=== PATIENT | female | born 1965 | race Caucasian/White ===

== ENCOUNTER 2019-07-19 08:51 | Outpatient (CLI) | payer OTHER, SELFPAY ==
--- NOTE | ~2019-07-19 | MM_ITS ---
EXAMINATION: MM screening andrei BI w wai HISTORY: Screening mammogram TECHNIQUE: Craniocaudal and mediolateral oblique 3-D tomosynthesis images were obtained and synthetic 2-D images were generated. CAD analysis was submitted and interpreted. COMPARISON: No prior mammogram is available for comparison at this institution. BREAST PARENCHYMAL COMPOSITION: There are scattered areas of fibroglandular density. FINDINGS: Stable benign-appearing low density mass in the upper outer quadrant of the right breast, T here is no evidence of suspicious mass, calcification, or architectural distortion to suggest maligna ncy in either breast. There has been no suspicious interval change. IMPRESSION: 1. No mammographic evidence of malignancy. 2. Recommend routine screening mammography in one year. BI-RADS Category 2: Benign finding(s). Reviewed, dictated and finalized at location A.
== END 2019-07-19 08:52 | disposition home or self-care (01) ==
LOC: ANHIMG 08:53
PROVIDERS: PCP Internal Medicine; Visit Provider Obstetrics & Gynecology
DX: Z12.31 Encounter for screening mammogram for malignant neoplasm of breast (principal)
CPT/HCPCS: 77063; 77067

== ENCOUNTER 2020-07-24 08:49 | Outpatient (CLI) | payer OTHER, SELFPAY ==
--- NOTE | ~2020-07-24 | MM_ITS ---
EXAMINATION: MM screening andrei BI w wai HISTORY: Screening TECHNIQUE: Craniocaudal and mediolateral oblique 3-D tomosynthesis images were obtained and synthetic 2-D images were generated. CAD analysis was submitted and interpreted. COMPARISON: Comparison to multiple prior studies sequentially, with oldest reviewed study dated 07/03. BREAST PARENCHYMAL COMPOSITION: There are scattered areas of fibroglandular density. FINDINGS: There is no evidence of suspicious mass, calcification, or architectural distortion to sugg est malignancy in either breast. There has been no suspicious interval change. IMPRESSION: 1. No mammographic evidence of malignancy. 2. Recommend routine screening mammography in one year. BI-RADS Category 1: Negative Reviewed, dictated and finalized at location A.
== END 2020-07-24 08:50 | disposition home or self-care (01) ==
LOC: ANHIMG 08:52
PROVIDERS: PCP Internal Medicine; Visit Provider Obstetrics & Gynecology
DX: Z12.31 Encounter for screening mammogram for malignant neoplasm of breast (principal)
CPT/HCPCS: 77063; 77067

== ENCOUNTER 2021-01-03 13:55 | Outpatient (CLI) | payer OTHER, SELFPAY ==
[2021-01-03 14:44] LABS: Alanine Aminotransferase 11 U/L (4-35); Albumin Level 4.6 g/dL (3.5-5.1); Alkaline Phosphatase 59 U/L (38-126); Anion Gap 8 mmol/L (8-16); Aspartate Amino Transferase 25 U/L (14-36); Bilirubin,Total 0.3 mg/dL (0.2-1.3); Blood Urea Nitrogen 15 mg/dL (7-17); Calcium 10.1 mg/dL (8.4-10.2); Carbon Dioxide 29 mmol/L (22-30); Chloride 103 mmol/L (98-107); Estimated Glomerular Filt Rate > 60; Glucose 90 mg/dL (65-110); Potassium 4.2 mmol/L (3.4-5.0); Sodium 140 mmol/L (137-145)
== END 2021-01-03 13:56 | disposition home or self-care (01) ==
LOC: ANHLAB 13:58
PROVIDERS: PCP Internal Medicine; Visit Provider Internal Medicine
DX: L68.0 Hirsutism (principal); I10 Essential (primary) hypertension
CPT/HCPCS: 36415; 80053

== ENCOUNTER 2021-01-08 08:57 | Outpatient (CLI) | payer OTHER, SELFPAY ==
[2021-01-08 10:01] LABS: Thyroid Stimulating Hormone 0.586 uIU/mL (0.465-4.680)
[2021-01-11 11:45] LABS: Testosterone Total 24 ng/dL (2-45)
== END 2021-01-08 08:58 | disposition home or self-care (01) ==
LOC: ANHLAB 09:00
PROVIDERS: PCP Internal Medicine; Visit Provider Internal Medicine
DX: L68.0 Hirsutism (principal)
CPT/HCPCS: 36415; 84403; 84443

== ENCOUNTER 2021-02-01 09:25 | Outpatient (CLI) | payer OTHER, SELFPAY ==
[2021-02-01 10:17] LABS: Anion Gap 7 mmol/L (8-16); Blood Urea Nitrogen 15 mg/dL (7-17); Calcium 10.2 mg/dL (8.4-10.2); Carbon Dioxide 30 mmol/L (22-30); Chloride 99 mmol/L (98-107); Estimated Glomerular Filt Rate > 60; Glucose 94 mg/dL (65-110); Sodium 136 mmol/L (137-145)
== END 2021-02-01 09:26 | disposition home or self-care (01) ==
PROVIDERS: PCP Internal Medicine; Visit Provider Internal Medicine
DX: Z51.81 Encounter for therapeutic drug level monitoring (principal); Z79.899 Other long term (current) drug therapy
CPT/HCPCS: 36415; 80048

== ENCOUNTER 2021-06-07 00:42 | Day surgery (SDC) | payer OTHER, SELFPAY ==
[2021-05-27 13:11] VITALS: BMI 27.2
--- NOTE | 2021-06-06 12:19 | PM.HPGS ---
History of Present Illness History of Present Illness Consent: Risks, benefits, and alternatives have been discussed and questions answered. Patient agrees to proceed with procedure. Chief complaint: family hx of colon ca, neoplasm screening Narrative: Wilda Ceron is a 55 year old female was referred for colon cancer screening. She has a family history of colon cancer in a maternal grandparent. Review of Systems Review of Systems: All systems reviewed & are unremarkable except as noted in HPI and below PMFSH Past Medical History Medical History Anxiety Arthritis Arthritis of foot, right, degenerative Depression Encephalitis GERD (gastroesophageal reflux disease) Hallux valgus with bunions of right foot High cholesterol History of syncope Hypertension Lumbar scoliosis Metatarsus adductus of right foot Vision abnormalities Surgical History Surgical History History of left hip replacement 2015, Vincent Abbasiorlando History of surgery Right femur nail 1979 Family History Family History Other Arthritis Hypertension Social History Social History Smoking packs per day: 1 Smoking cigarettes per day: 20.0 Years smoked: 33 Smoking pack-years: 33.00 Smoking status: Former smoker Tobacco type: cigarettes Alcohol intake: current Alcohol use details: Occasional Substance use: never Substance use type: does not use Living arrangements: with family Spiritual care concerns: No Meds Home Medications and Allergies Home Medications Medication Instructions Recorded Confirmed Type acetaminophen 650 mg 1,300 mg PO Q12H PRN 04/15/19 05/27/21 History tablet,extended release aspirin 81 mg tablet,delayed 81 mg PO DAILY 04/15/19 05/27/21 History release lisinopril 20 mg tablet 20 mg PO DAILY 04/15/19 05/27/21 History multivitamin 1 cap PO DAILY 04/15/19 05/27/21 History sertraline 150 mg PO DAILY 04/15/19 05/27/21 History simvastatin 40 mg tablet 40 mg PO DAILY 04/15/19 05/27/21 History cholecalciferol (vitamin D3) 250 mcg PO DAILY 05/27/21 05/27/21 History [Vitamin D3] spironolactone 25 mg PO DAILY 05/27/21 05/27/21 History Allergies Allergy/AdvReac Type Severity Reaction Status Date / Time No Known Allergies Allergy Unknown Verified 05/27/21 13:11 Exam Const: General: alert Orientation/consciousness: patient oriented x3 Resp: Auscultation: clear to auscultation bilaterally Cardio: Rhythm: regular rhythm GI: GI Palp: Yes Soft to palpation and No Tenderness to palpation present (GI) Neuro: General: patient oriented x3 Assessment and Plan Assessment and plan (1) Colon cancer screening: Code(s): Z12.11 - Encounter for screening for malignant neoplasm of colon Status: Acute Assessment and Plan: Colonoscopy with possible biopsy or polypectomy or cautery or injection of substances.
[2021-06-07 08:14] VITALS: BP 124/78; PULSE 79; RESP 16; TEMP 36.6; O2SAT 100
--- NOTE | 2021-06-07 08:17 | WPDANESEPPF ---
Anes - Initial Pre Proc Eval Procedure: Operation Date: 06/07/21 09:30 Proposed Procedures p Screening Colonoscopy - Marin Soto MD Date/Time: 06/07/21 08:17 Surgeon: Marin Soto MD Pre Op Diagnosis: family hx of colon ca, neoplasm screening Patient Data Age: 55 Gender: F Height: 1.71 m Weight: 80 kg Last Vital Signs Temp 36.6 C 06/07/21 08:14 Pulse 79 06/07/21 08:14 Resp 16 06/07/21 08:14 BP 124/78 06/07/21 08:14 Pulse Ox 100 06/07/21 08:14 Allergies Allergy/AdvReac Type Severity Reaction Status Date / Time No Known Allergies Allergy Unknown Verified 05/27/21 13:11 Home Medications Medication Instructions Recorded Confirmed Type acetaminophen 650 mg 1,300 mg PO Q12H PRN 04/15/19 05/27/21 History tablet,extended release aspirin 81 mg tablet,delayed 81 mg PO DAILY 04/15/19 05/27/21 History release lisinopril 20 mg tablet 20 mg PO DAILY 04/15/19 05/27/21 History multivitamin 1 cap PO DAILY 04/15/19 05/27/21 History sertraline 150 mg PO DAILY 04/15/19 05/27/21 History simvastatin 40 mg tablet 40 mg PO DAILY 04/15/19 05/27/21 History cholecalciferol (vitamin D3) 250 mcg PO DAILY 05/27/21 05/27/21 History [Vitamin D3] spironolactone 25 mg PO DAILY 05/27/21 05/27/21 History Patient hx anesthesia problems: none Family hx anesthesia problems: none Results Review: All pre-operative results and documents have been reviewed as part of the pre-operative evaluation. [facility] Past Medical History Medical History (Updated 06/06/21 @ 12:20 by Marin Soto MD) Anxiety Arthritis Arthritis of foot, right, degenerative Depression Encephalitis GERD (gastroesophageal reflux disease) Hallux valgus with bunions of right foot High cholesterol History of syncope Hypertension Lumbar scoliosis Metatarsus adductus of right foot Vision abnormalities Surgical History Surgical History History of left hip replacement 2015, Vincent Bowden History of surgery Right femur nail 1979 Family History Family History Other Arthritis Hypertension Social History Social History Smoking packs per day: 1 Smoking cigarettes per day: 20.0 Years smoked: 33 Smoking pack-years: 33.00 Smoking status: Former smoker Tobacco type: cigarettes Alcohol intake: current Alcohol use details: Occasional Substance use: never Substance use type: does not use Living arrangements: with family Spiritual care concerns: No Anes - Eval Final PreProcedure Day of Procedure 06/07/21 08:17 Patient weight: overweight Heart: regular rate and rhythm Lungs: clear to auscultation and normal air movement Airway: Mallampati scale class II Neurological: alert and oriented Last oral intake: >/= 8 hours ASA classification: II Emergent: no Anesthetic plan: proceed Anesthesia type and monitoring: general GIVS and standard monitoring Results Review: All pre-operative results and documents have been reviewed as part of the pre-operative evaluation. Informed Consent: The patient's anesthetic plan and its attendant risks and benefits were discussed with the patient/family/POA. Questions were solicited and answers provided to the satisfaction of the patient/family/POA.
[2021-06-07 08:24] VITALS: BMI 26.0
[2021-06-07] MEDS: LACTATED RINGERS 1,000 ML 150 ML IV CONT (08:25)
[2021-06-07 09:24] VITALS: BP 108/60; PULSE 71; RESP 20; O2SAT 100
[2021-06-07 09:34] VITALS: BP 111/66; PULSE 70; RESP 18; O2SAT 100
[2021-06-07 09:44] VITALS: BP 126/73; PULSE 67; RESP 17; O2SAT 100
== END 2021-06-07 09:52 | disposition home or self-care (01) ==
PROVIDERS: PCP Internal Medicine; Visit Provider Internal Medicine Gastroenterology
PROC: 0DJD8ZZ Inspection of Lower Intestinal Tract, Via Natural or Artificial Opening Endoscopic (ICD-10-PCS; CPT 45378; principal; 2021-06-07 09:30)
DX: Z12.11 Encounter for screening for malignant neoplasm of colon (principal); K62.1 Rectal polyp; Z80.0 Family history of malignant neoplasm of digestive organs; I10 Essential (primary) hypertension; E78.00 Pure hypercholesterolemia, unspecified; F41.8 Other specified anxiety disorders; Z87.891 Personal history of nicotine dependence; Z79.82 Long term (current) use of aspirin
CPT/HCPCS: 45380; 88305; J2704; J7120

== ENCOUNTER 2021-08-01 08:51 | Outpatient (CLI) | payer OTHER, SELFPAY ==
--- NOTE | ~2021-08-01 | MM_ITS ---
EXAMINATION: MM screening [facility] BI w wai HISTORY: Screening mammogram TECHNIQUE: Craniocaudal and mediolateral oblique 3-D tomosynthesis images were obtained and synthetic 2-D images were generated. CAD analysis was submitted and interpreted. COMPARISON: 07/24/2020, 07/19/2019, 07/12/2018 BREAST PARENCHYMAL COMPOSITION: There are scattered areas of fibroglandular density. FINDINGS: There is no suspicious mass, calcification, or architectural distortion to suggest malignan cy in either breast. There has been no suspicious interval change. IMPRESSION: 1. No mammographic evidence of malignancy. 2. Recommend routine screening mammography in one year. BI-RADS Category 1: Negative Reviewed, dictated and finalized at location A.
== END 2021-08-01 08:52 | disposition home or self-care (01) ==
PROVIDERS: PCP Internal Medicine; Visit Provider Obstetrics & Gynecology
DX: Z12.31 Encounter for screening mammogram for malignant neoplasm of breast (principal)
CPT/HCPCS: 77063; 77067

== ENCOUNTER 2021-09-13 10:48 | Outpatient (CLI) | payer OTHER, SELFPAY ==
[2021-09-13 12:15] LABS: Anion Gap 7 mmol/L (8-16); Blood Urea Nitrogen 19 mg/dL (7-17); Calcium 9.9 mg/dL (8.4-10.2); Carbon Dioxide 28 mmol/L (22-30); Chloride 104 mmol/L (98-107); Estimated Glomerular Filt Rate > 60; Glucose 82 mg/dL (65-110); Potassium 4.2 mmol/L (3.4-5.0); Sodium 139 mmol/L (137-145)
== END 2021-09-13 10:49 | disposition home or self-care (01) ==
LOC: ANHLAB 10:52
PROVIDERS: PCP Internal Medicine; Visit Provider Internal Medicine
DX: I10 Essential (primary) hypertension (principal)
CPT/HCPCS: 36415; 80048

== ENCOUNTER 2021-11-12 10:47 | Outpatient (CLI) | payer OTHER, SELFPAY ==
[2021-11-12 12:37] LABS: Anion Gap 9 mmol/L (8-16); Blood Urea Nitrogen 20 mg/dL (7-17); Calcium 9.6 mg/dL (8.4-10.2); Carbon Dioxide 27 mmol/L (22-30); Chloride 101 mmol/L (98-107); Estimated Glomerular Filt Rate > 60; Glucose 85 mg/dL (65-110); Potassium 4.6 mmol/L (3.4-5.0); Sodium 137 mmol/L (137-145)
== END 2021-11-12 10:48 | disposition home or self-care (01) ==
LOC: ANHLAB 10:49
PROVIDERS: PCP Internal Medicine; Visit Provider Internal Medicine
DX: I10 Essential (primary) hypertension (principal)
CPT/HCPCS: 36415; 80048

== ENCOUNTER 2023-01-29 13:00 | Outpatient (RCR) | payer OTHER, SELFPAY ==
--- NOTE | 2023-01-01 15:25 | PTOPEVAL1 ---
Assessment and note entered by Charles Lara, PT Evaluation Information Assessment Status Evaluation Diagnosis Chronic left knee pain Onset 12/11/22 Subjective Information Feels that he left knee is dong really well. Still limping and having some pain on the anterior and lateral left hip. Currently feeling a little more pain on her right hip than her left. Has some difficulty getting into and out of her car. She has not had any home health or outpatient therapy up til now. Had some lingering issues from nerve block and has a bike that she has at home. Reported Pain Level Pain Score 1: Self Report Assessment PT Clinical Summary Patient presents with signs and symptoms consistent with post operative TKA. edema noted with girth measures, weakness in hips, and minor lacking in knee ROM. She will benefit from skilled therapy to address these deficits for full functional pain free return. Plan of Care Interventions Gait Training,Hot Pack/Cold Pack,Intermittent Compression,Manual Therapy,Therapeutic Activities, Therapeutic Exercise PT Services Indicated Yes Treatment Frequency and 2x/week for 6 weeks Duration These treatments will address the objective and functional deficits as defined above. The patient will be advanced safely and appropriately in order for the patient to progress towards his/her prior level of function. Additional exercises will be introduced and as well as a comprehensive home exercise program upon discharge, if needed, ?to ensure carryover of functional gains achieved in the clinic. This treatment plan has been reviewed and agreement upon by the patient.
--- NOTE | 2023-01-13 10:01 | PCPTNOTE ---
Pt. canceled 01/13/23 appointment noting that she was sick.
--- NOTE | 2023-01-29 13:55 | PTOPEVAL1 ---
Assessment and note entered by Joaquim Kim Discharge Information Assessment Status Discharge Diagnosis chronic left knee pain, left TKA Onset 12/11/22 Subjective Information Pt. reports that her left knee is doing great. She states that she is happy with her mobility and no longer has knee pain. She states that she continues to exercise at home. She reports she is ready to be discharged at this time. Reported Pain Level Pain Score 0: Self Report Assessment PT Clinical Summary Pt. has met all goals established at the initial evaluation. She is encouraged to continue with her HEP and will be discharged from our care at this time. Plan of Care Interventions Gait Training,Hot Pack/Cold Pack,Intermittent Compression,Manual Therapy,Therapeutic Activities, Therapeutic Exercise PT Services Indicated Yes Treatment Frequency and D/C from PT to an independent HEP. Duration These treatments will address the objective and functional deficits as defined above. The patient will be advanced safely and appropriately in order for the patient to progress towards his/her prior level of function. Additional exercises will be introduced and as well as a comprehensive home exercise program upon discharge, if needed, ?to ensure carryover of functional gains achieved in the clinic. This treatment plan has been reviewed and agreement upon by the patient.
== END 2023-01-29 14:44 | disposition home or self-care (01) ==
LOC: ANHPT 13:00
PROVIDERS: PCP Internal Medicine; Visit Provider Orthopaedic Surgery Adult Reconstructive Orthopaedic Surgery
DX: M25.562 Pain in left knee (principal); G89.29 Other chronic pain
CPT/HCPCS: 97014; 97016; 97110; 97140; 97161; 97530; G0283

== ENCOUNTER 2023-09-24 09:14 | Outpatient (CLI) | payer OTHER, SELFPAY ==
[2023-09-24 09:55] LABS: Calcium 9.9 mg/dL (8.4-10.2)
[2023-09-24 10:00] LABS: Parathyroid Intact 48.4 pg/mL (7.5-53.5)
== END 2023-09-24 09:15 | disposition home or self-care (01) ==
LOC: ANHLAB 09:16
PROVIDERS: PCP Internal Medicine; Visit Provider Internal Medicine
DX: E83.52 Hypercalcemia (principal)
CPT/HCPCS: 36415; 82310; 83970

== ENCOUNTER 2024-03-10 16:15 | Outpatient (RCR) | payer OTHER, SELFPAY ==
--- NOTE | 2024-02-10 09:03 | OPREHPOC ---
Outpatient Therapy Plan of Care This is a Multidisciplinary Plan of Care that may contain components documented by all disciplines (PT, OT, and ST.) PT Problem 1 PT Problem #1 Knowledge Deficit PT Goal 1 Goal / Goal Update *indep with HEP Target Visit 10 PT Problem 2 PT Problem #2 Impaired Range of Motion PT Goal 1 Goal / Goal Update improve R hip flexibility to be symmetrical to L hip and improve gait pattern: 1* hamstring length with supine SLR 85' 2* anterior hip/quad length with prone knee flexion 125' Target Visit 10 PT Problem 3 PT Problem #3 Impaired Strength PT Goal 1 Goal / Goal Update increase strength R hip, to improve gait pattern and mobility 1* single leg standing x 10 seconds with good stability 2* sit/stand 5 reps with out use of UE Target Visit 10 PT Problem 4 PT Problem #4 Impaired Functional Mobility PT Goal 1 Goal / Goal Update 1* pt ambulate with out limp R LE with stance phase R 2* up/down 12 steps with alternating step pattern, indep without hand railing 3* 2 minute walking test distance of 500', to improve community ambulation time Target Visit 10
--- NOTE | 2024-02-10 09:03 | PTOPEVAL1 ---
Assessment and note entered by Kristina Ramachandran, PT Evaluation Information Assessment Status Evaluation ICD-10 Condition Codes (PT) Abnormalities of gait and mobility R26.9,Weakness R53.1,Encounter for other orthopedic aftercare Z47 .89,Aftercare following joint replacement surgery Z47.1 Other ICD-10 Condition Codes ( s/p R THR PT) Onset Nov 17, 2023 Subjective Information had R THR Oct- with removal of hardware from femur and repair hip abductor tendon after surgery, wore hip abduction pelvic brace for 12 weeks post op; was full WB post op have not used assistive device for past 8 weeks, 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, computer work; have not been doing any exercises post op; GOAL: more strength in trunk and leg, improve gait pattern Reported Pain Level Pain Score Self Report Additional Pain Score Comments have not had any pain in the past week; no issues with sleeping, is able to lie on her R side; tends to sleep R/L side with top leg behind her body; educated on use of pillow between knees for correct position of hips and back Assessment PT Clinical Summary Wilda is s/p R THR with removal of hardware from femur on 11-17-23 and repair of hip abductor tendon She does not have any restrictions and has returned to work-- walking and computer work. Self assessment with the LE functional scale is 28% limitation in activity level. She has not been performing any strengthening exercises--per dr, just daily activities. With the evaluation: decreased strength of R hip abduction and extension; decreased flexibility of hamstring, anterior hip/quad muscles; decreased functional mobility with sit/stand and gait pattern with lateral shift of R hip with stance phase. Skilled PT services are indicated for increase R hip flexibility and strength, to improve functional mobility, gait and balance skills, to return to active lifestyle. Plan of Care Interventions Hot Pack/Cold Pack,Manual Therapy,Neuro Re- education,Patient/Caregiver Education,Therapeutic Activities,Therapeutic Exercise PT Services Indicated Yes Treatment Frequency and 1-2x/wk for 10visits Duration These treatments will address the objective and functional deficits as defined above. The patient will be advanced safely and appropriately in order for the patient to progress towards his/her prior level of function. Additional exercises will be introduced and as well as a comprehensive home exercise program upon discharge, if needed, ?to ensure carryover of functional gains achieved in the clinic. This treatment plan has been reviewed and agreement upon by the patient.
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
--- NOTE | 2024-03-10 17:52 | OPREHPOC ---
Outpatient Therapy Plan of Care This is a Multidisciplinary Plan of Care that may contain components documented by all disciplines (PT, OT, and ST.) PT Problem 1 PT Problem #1 Knowledge Deficit PT Goal 1 Goal / Goal Update *indep with HEP Target Visit 10 Progress Met PT Problem 2 PT Problem #2 Impaired Range of Motion PT Goal 1 Goal / Goal Update improve R hip flexibility to be symmetrical to L hip and improve gait pattern: 1* hamstring length with supine SLR 85' 2* anterior hip/quad length with prone knee flexion 125' Target Visit 10 Progress Met PT Problem 3 PT Problem #3 Impaired Strength PT Goal 1 Goal / Goal Update increase strength R hip, to improve gait pattern and mobility 1* single leg standing x 10 seconds with good stability 2* sit/stand 5 reps with out use of UE Target Visit 10 Progress Met PT Problem 4 PT Problem #4 Impaired Functional Mobility PT Goal 1 Goal / Goal Update 1* pt ambulate with out limp R LE with stance phase R 2* up/down 12 steps with alternating step pattern, indep without hand railing 3* 2 minute walking test distance of 500', to improve community ambulation time Target Visit 10 Progress Met
--- NOTE | 2024-03-10 17:52 | PTOPDC ---
Assessment and note entered by Charles Lara, PT Evaluation Information Assessment Status Discharge ICD-10 Condition Codes (PT) Abnormalities of gait and mobility R26.9,Weakness R53.1,Encounter for other orthopedic aftercare Z47 .89,Aftercare following joint replacement surgery Z47.1 Other ICD-10 Condition Codes ( s/p R THR PT) Onset Nov 17, 2023 Subjective Information Reports that she feels she is doing really well overall. Denies any increased pain or discomfort in hip but her left knee has felt a little off. No concerns with HEP and feels comfortable with discharge at this time. Reported Pain Level Pain Score 0: Self Report Assessment PT Clinical Summary Patient has met all goals for therapy and is suitable for discharge from skilled therapy at this time. Patient has understanding of HEP for wound treatment rn progress. Plan of Care PT Services Indicated Yes
== END 2024-03-11 09:12 | disposition home or self-care (01) ==
LOC: ANHPT 16:15
PROVIDERS: PCP Internal Medicine
DX: Z47.1 Aftercare following joint replacement surgery (principal); Z96.641 Presence of right artificial hip joint
CPT/HCPCS: 97110; 97116; 97161; 97530

== ENCOUNTER 2024-10-26 01:41 | Day surgery (SDC) | payer OTHER, SELFPAY ==
--- OUTSIDE RECORDS SUMMARY | 2019-07-19 | XMS_ITS | Encounter Summary ---
Author Organization [facility] Address [address] [place] [address] Care Team Providers Care Tube Buffer Name Role Phone Unavailable Primary Care Provider Unavailabl e Reason for Visit * Diagnostic Imaging (Routine) - Closed Specialty Diagnoses / Procedures Referred By Felisha rosales Referred To Contact Procedures Breast Imaging Screening Outside Reference Referral, Self Referral ID Status Reason Start Date Expiration Date Visits Re quested Visits Authorized [id number] Closed 08/08/2022 09/07/2023 1 1 Encounter Details Date Type Department Care Team (Late st Contact Info) Description 07/19/2019 Hospital Encounter [facility] [address] [place] [id number] Social History Tobacco Use Types Packs/Day Years Used Date Smoking Tobacco: Former Cigarettes 2019 Passive Smoke Exposure: Never Smokeless Tobacco: Never AUDIT-C Answer Date Recorded Q1: How often do you have a drink containing alc ohol? Monthly or less 11/17/2023 Q2: How many drinks containi ng alcohol do you have on a typical day when you are drinking? 1 or 2 11/17/2023 Q3: How often do you have si x or more drinks on one occasion? Never 11/17/2023 PHQ-2 Answer Date Recorded PHQ-2 Total Score (If total score is 3 or more points, staff should administer the PHQ-9) 2 08/11/2023 Personal Safety Answer Date Recorded Have you ever been in or are you currently in a harmful physical or emotional relationship or is someone making you feel afraid or unsafe? 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 Monthly or less 11/17/2023 12:43 PM CDT Bill Hernandez, ELVIN Q2: How many drinks containing alcohol do you have on a typical day when you are drinking? 1 or 2 11/17/2023 12:43 PM CDT Bill Hernandez RN Q3: How often do you have six or more drinks on one occasion? Never 10/16/2023 7:54 AM CDT Ronel Fong RN documented as of this encounter Plan of Treatment Not on file documented as of this encounter Procedures Procedure Name Priority Date/Time Associated Diagnosis Comments BREAST IMAGING MG SCREENING OUTSIDE REFERENCE Routine 07/19/2019 12:00 AM CDT documented in this encounter Results * Breast Imaging Screening Outside Reference (07/19/2019 12:00 AM CDT) Impressions [facility]_M[facility]MO[facility] - 08/08/2022 1:29 PM CDT These images are for Reference purposes only and have not been reviewed by [facility] Radiology. There will be no report generated by a [facility] Radiologist. 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 04/21/2022 04/23/2022 07/20/2022 3:05 AM C DT documented as of this encounter
--- OUTSIDE RECORDS SUMMARY | 2020-07-24 | XMS_ITS | Encounter Summary ---
Author Organization [facility] Address [address] [place] [address] Care Team Providers Care Director Business Development Name Role Phone Bishnu Stacy MD Primary Care Provider [phone] Reason for Visit * Diagnostic Imaging (Routine) - Closed Specialty Diagnoses / Procedures Referred By Contac t Referred To Contact Procedures Breast Imaging Screening Outside Reference Referral, Self Referral ID Status Reason Start Date Expiration Date Visits Re quested Visits Authorized [id number] Closed 08/08/2022 09/07/2023 1 1 Encounter Details Date Type Department Care Team (Late st Contact Info) Description 07/24/2020 Hospital Encounter [facility] [address] [place] [id number] Social History Tobacco Use Types Packs/Day Years Used Date Smoking Tobacco: Former Cigarettes 1 2019 Passive Smoke Exposure: Never Smokeless Tobacco: [...] on file 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 Monthly or less 11/17/2023 12:43 PM CDT Bill Hernandez RN Q2: How many drinks containing alcohol do [...] BREAST IMAGING MG SCREENING OUTSIDE REFERENCE Routine 07/24/2020 12:00 AM CDT documented in this encounter Results * Breast Imaging Screening Outside Reference (07/24/2020 12:00 AM CDT) Impressions [facility] - 08/08/2022 1:29 PM CDT These images are for Reference purposes only and have not been reviewed by [facility] Radiology. There will be no report generated by a [facility] Radiologist. 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 04/21/2022 04/23/2022 07/20/2022 3:05 AM C DT documented as of this encounter Care Teams Director Business Development Relationship Specialty Start Date End Date Bishnu Stacy MD PCP - General Internal Medicine 06/11/20 documented as of this encounter
[2024-10-14 14:36] VITALS: BMI 29.8
--- OUTSIDE RECORDS SUMMARY | 2024-10-26 01:44 | XMS_ITS | Clinical Summary ---
Author Organization [facility] [address] Address [address] [place] [address] Care Team Providers Care Manager Wind Name Role Phone Bishnu Stacy MD Primary Care Provider [phone] Allergies No known active allergies Medications cholecalcifero l, vitamin D3, (VITAMIN D3 ORAL)Indicatio ns:supplement Take 5,000 Units by mouth every morning 3 Active acetaminophen (TYLENOL) 500 mg tablet Take 2 tablets (1,000 mg total) by mouth every 8 (eight) hours 90 tablet 1 4 Active aspirin 81 mg enteric coated tabletIndicati ons:prevention of thrombosis Take 1 tablet (81 mg total) by mouth 2 (two) times a day 60 tablet [address] (PROTONIX) 20 mg EC tablet TAKE 1 TABLET BY MOUTH EVERY DAY 90 tablet 3 5 Active sertraline (ZOLOFT) 100 mg tablet TAKE 1 AND 1/2 TABLETS DAILY 135 tablet 5 Active lisinopriL (PRINIVIL,ZEST RIL) 20 mg tablet TAKE 1 TABLET DAILY 90 tablet 5 Active simvastatin (ZOCOR) 40 mg tablet TAKE 1 TABLET NIGHTLY 90 tablet 5 Active sertraline (ZOLOFT) 100 mg tablet TAKE 1 AND 1/2 TABLETS BY MOUTH DAILY 135 tablet 5 10/15/19 25 Discontinued lisinopriL (PRINIVIL,ZEST RIL) 20 mg tablet Take 1 tablet (20 mg total) by mouth daily 90 tablet 5 10/15/19 25 Discontinued simvastatin (ZOCOR) 40 mg tablet Take 1 tablet (40 mg total) by mouth nightly 90 tablet 5 10/15/19 25 Discontinued Active Problems Problem Noted Date Diagnosed Date Dysphagia 08/18/2024 Primary localized osteoarthritis of right hip Primary osteoarthritis of right hip 08/12/2023 Arthritis of left knee 12/11/2022 Risk factors for obstructive sleep apnea 023 Primary osteoarthritis of left knee 09/05/2022 Shoulder pain 04/09/2022 Osteoarthritis of right glenohumeral joint 02/20 Overview (02/20/2022): Added automatically from request for surgery [id number] Hirsutism 08/05/2021 Mixed hyperlipidemia 08/05/2021 Assessment & Plan (08/18/2024 9:42 AM CDT): Stable, doing well Essential hypertension 08/05/2021 Assessment & Plan (08/18/2024 9:42 AM CDT): Bp at target, continue medication for directed. Depression 08/05/2021 Assessment & Plan (08/18/2024 9:53 AM CDT): Stable on meds Encounters Date Type Department Care Team Description 10/18/2024 6:20 AM CDT - 10/18/2024 11:59 PM CDT Hospital Encounter [facility] [address] [place] [id number] Personal history of nicotine dependence Discharge Disposition: Discharge to home or self care 10/18/2024 Results Follow-Up [facility] [address] [place] [address] [address] [place] [address] Lung Cancer Screening 08/18/2024 12:37 PM CDT - 08/18/2024 11:59 PM CDT Hospital Encounter [address] [address] Mixed hyperlipidemia; Essential hypertension; Depression, unspecified depression type; Dysphagia, unspecified type Discharge Disposition: Discharge to home or self care 08/18/2024 9:00 AM CDT Office Visit [facility] [address] [place] [phone] Bishnu Stacy MD Dysphagia, unspecified type (Primary Dx); Mixed hyperlipidemia; Essential hypertension; Depression, unspecified depression type; Encounter for hepatitis C screening test for low risk patient; Routine general medical examination at a health care facility 08/18/2024 6:53 AM CDT - 08/18/2024 11:59 PM CDT Hospital Encounter [facility] ([facility]) [address] [place] [address] Screening mammogram, encounter for Discharge Disposition: Discharge to home or self care 08/18/2024 Results Follow-Up [facility] [address] [place] [phone] Bishnu Stacy MD POCT glucose, POCT lipid panel, CBC with auto differential, Additional followed-up results: 3 08/18/2024 Results Follow-Up [facility] [address] [phone] Bishnu Stacy MD Screening Mammogram Bilateral W Manohar from Last 3 Months Immunizations Immunization Administration Dates Next Due Influenza, Quadrivalent, Spl it, Preservative Free, Intramuscular 11/25/2022 Influenza, Trivalent, Preser vative Free, Intramuscular 12/17/2023 Influenza, Unspecified 12/03/2022,11/24/2022 Pfizer SARS-CoV-2 Monovalent Vaccination (12+ Yrs) PURPLE 03/05/2020,02/13/2020 ZOSTER Recombinant 10/28/2022,08/15/2022, 023 Surgical History Surgery Date Site/Laterality Comments FEMUR FRACTURE SURGERY 01/24/1980 - 02/23/1980 TONSILLECTOMY 02/24/1968 - 02/22/1969 SHOULDER ARTHROPLASTY 04/10/2022 Right FLUORO GUIDED INJECTION HIP RIGHT 08/14/2023 Right TOTAL HIP ARTHROPLASTY 02/23/2015 - 02/23/2016 Left COLONOSCOPY 02/23/2021 - 02/22/2022 WISDOM TOOTH EXTRACTION as teen KNEE ARTHROPLASTY BREAST BIOPSY Left 2007 benign Medical History Medical History Date Comments Hypertension Depression Hyperlipidemia Encephalitis 12/1994 related to sinus itis OA (osteoarthritis) Family History Medical History Relation Name Comments Bipolar disorder Father Heart attack Father Hyperlipidemia Father Hypertension Father Hyperlipidemia Mother Transient ischemic attack Mother Anesthesia problems Neg Hx Relation Name Status Comments Father Mother Social History Tobacco Use Types Packs/Day Years Used Date Smoking Tobacco: Former Cigarettes 2019 Passive Smoke Exposure: Never Smokeless Tobacco: Never Tobacco Cessation:Counseling Given: Not Answered AUDIT-C Answer Date Recorded Q1: How often [...] on file 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 Gender Identity Not on file Sexual Orientation Not on file Obstetrics History Para Term AB IAB SAB Ectopic Multiple Livin g Live Births 2 2 2 Date Outcome GA Total Labor Labor/2nd/3rd Weight Sex Type Anes PTL Brii A1 A5 Name Clin Term Term Last Filed Vital Signs Vital Sign Reading Time Taken Comments Blood Pressure 149/81 08/18/2024 9:02 AM CDT Pulse 73 08/18/2024 9:02 AM CDT Temperature 36.6 C (97.9 F) 11/18/2023 12:00 AM CDT Respiratory Rate 18 11/18/2023 8:00 AM CDT Oxygen Saturation 100% 11/18/2023 8:40 AM CDT Inhaled Oxygen Concentration - - Weight 90.3 kg (199 lb) 08/18/2024 9:02 AM CDT Height 172.7 cm (5' 8) 08/18/2024 9:02 AM CDT Body Mass Index 30.26 08/18/2024 9:02 AM CDT Plan of Treatment Health Maintenance Due Date Last Done Comments Cervical Cancer Screening 1965 DTaP/Tdap/Td Vaccine (1 - Tdap) 07/15/1974 Hepatitis B Screening 07/15/1981 Depression Screening 08/13/2024 08/14/2023 Covid-19 Vaccine ( season) 2024 11/07/2021, 06/03/2021, 11/30/2020, Additional history exists Influenza Vaccine (#1) 2024 , 12/03/2022, 11/25/2022, Additional history exists Breast Cancer Screening-Mammogram 08/18/2025 08/18/2024, 08/14/2023, 08/08/2022, Additional history exists Regular Well Visit/Exam 18-64 08/18/2025 08/18/2024, 08/14/2023, 08/08/2022, Additional history exists Lung Cancer Screening 10/19/2025 10/18/2024, 024 Colon Cancer Screening-Colonoscopy 06/07/2026 Zoster Vaccine Completed 10/28/2022, 07/25, 08/13/2022 Hepatitis C Screening Completed 08/18/2024 Pneumococcal vaccine <65 Aged Out No longer eligible based on patient's age to complete this topic Medical Devices Implanted Type Area Soaking Pit Operator Device Identifier Shelf Expiration Date Model / Serial / Lot Depuy [employer] Inc Attune Fb Tib Base Sz 5 Por [id number] - Sna - [id number] Implanted:Qty: 1 on 12/11/2022 by Suraj Snyder MD at [facility] Other - see comments Left: Knee [employer] Inc [id number] 03/25/2032 [id number] / NA / [id number] Description:Implant pause pe rformed prior to implant being opened to sterile field. [employer] Insert Attune Left Medial Stabilized Size 6 10mm [id number] - Sna - [id number] Implanted:Qty: 1 on 12/11/2022 by Suraj Snyder MD at [facility] Other - see comments Left: Knee [employer] [id number] 10/23/2030 [id number] / NA / [id number] Description:Implant pause pe rformed prior to implant being opened to sterile field. [employer] Attune Cruciate Retain Cementless Knee Left 6 Narrow Component [id number] - Sna - [id number] Implanted:Qty: 1 on 12/11/2022 by Suraj Snyder MD at [facility] Other - see comments Left: Knee [employer] [id number] 08/22/2032 [id number] / NA / [id number] Description:Implant pause pe rformed prior to implant being opened to sterile field. [employer] Simplex P Radiopaque Full Dose Cement Bone Sterile 6191-1-010 - [id number] Implanted:Qty: 1 on 04/10/2022 by Justice Peraza MD at [facility] [employer] 08/22/2024 6191-1-010 / / [id number] [employer] Cortiloc Augment Shoulder Right 15 D Medium Component Glenoid [id number] - [id number] Implanted:Qty: 1 on 04/10/2022 by Justice Peraza MD at [facility] [employer] 01/31/2026 [id number] / / [employer]pi [employer] Head Perform Cocr Modular Humeral [id number] - [id number] - [id number] Implanted:Qty: 1 on 04/10/2022 by Justice Peraza MD at [facility] Right: Shoulder [employer] [id number] 08/08/2025 [id number] / [id number] / [employer] Stem Perform Sz 2 Plus Humeral [id number] - [id number] Implanted:Qty: 1 on 04/10/2022 by Justice Peraza MD at [facility] [employer] 08/12/2026 [id number] / / [id number] [employer] Coater Carbon Paper Perform Low Offset Modular Humeral Head Ti [id number] - [id number] Implanted:Qty: 1 on 04/10/2022 by Justice Peraza MD at [facility] [employer] 08/12/2026 [id number] / / [id number] Ar[employer]rex Inc Corkscrew Ii Fiberwire 5.5mm 16.3mm 2 2 Full Thread [place] Suture [id number] - [id number] Implanted:Qty: 1 on 11/17/2023 at [facility] Right: Hip [employer] Inc 06/23/2027 [id number] / / [id number] [employer] Corkscrew Ii Fiberwire 5.5mm 16.3mm 2 2 Full Thread [place] Suture [id number] - [id number] Implanted:Qty: 1 on 11/17/2023 at [facility] Right: Hip [employer] Inc 11/23/2027 [id number] / / [id number] Depuy Orthopa[employer] Inc Bi Mentum 53mm Press Fit Femoral Proximal Cup Acetabular [id number] - [id number] Implanted:Qty: 1 on 11/17/2023 at [facility] Right: Hip [employer] 10/24/2027 [id number] / / [id number] Depuy [employer] Inc Liner Acet Hip Size 28 Poly Bi Mentum Altrx 53mm [id number] - [id number] Implanted:Qty: 1 on 11/17/2023 at [facility] Right: Hip [employer] 12/23/2026 [id number] / / [id number] Depuy Orth[employer] Inc Actis L111 Mm Collar Hip 8 High Offset Stem Femoral [id number] - [id number] Implanted:Qty: 1 on 11/17/2023 at [facility] Right: Hip [employer] Inc 10/23/2033 [id number] / / [id number] Depuy [employer] Articul/Julio 28mm Cementless Hip +1.5mm 12/14 Taper Head Femoral Latex Free [id number] - [id number] Implanted:Qty: 1 on 11/17/2023 at [facility] Right: Hip [employer] 08/22/2028 [id number] / / [id number] Procedures Procedure Name Priority Date/Time Associated Diagnosis Comments CT LUNG CANCER SCREENING Schedule Routine, Read Routine (OP Routine) 10/18/2024 7:03 AM CDT Personal history of nicotine dependence URINALYSIS AND REFLEX TO MICROSCOPIC AND CULTURE Routine 08/18/2024 12:37 PM CDT Mixed hyperlipidemia Essential hypertension Depression, unspecified depression type Dysphagia, unspecified type HEPATITIS C ANTIBODY Routine 08/18/2024 9:55 AM CDT Encounter for hepatitis C screening test for low risk patient TSH Routine 08/18/2024 9:54 AM CDT Mixed hyperlipidemia Essential hypertension Depression, unspecified depression type Dysphagia, unspecified type COMPREHENSIVE METABOLIC PANEL Routine 08/18/2024 9:54 AM CDT Mixed hyperlipidemia Essential hypertension Depression, unspecified depression type Dysphagia, unspecified type CBC WITH AUTO DIFFERENTIAL Routine 08/18/2024 9:54 AM CDT Mixed hyperlipidemia Essential hypertension Depression, unspecified depression type Dysphagia, unspecified type POCT LIPID PANEL Routine 08/18/2024 9:03 AM CDT Mixed hyperlipidemia POCT GLUCOSE 56256 Routine 08/18/2024 9: 03 AM CDT Mixed hyperlipidemia SCREENING MAMMOGRAM BILATERAL W MANOHAR Schedule Routine, Read Routine (OP Routine) 08/18/2024 7:20 AM CDT Screening mammogram, encounter for from Last 3 Months Results * CT Lung Cancer Screening (10/18/2024 7:03 AM CDT) Anatomical Region Laterality Modality Chest N/A Computed Tomogra phy 10/18/2024 8:32 AM CDT Impressions 10/18/2024 8:32 AM CDT 1. LungRADS Category 2 (benign) . Recommend Low dose Screening CT of chest in 12 months. LungRADS Categories: 1 - Negative (no nodules, or only benign calcified or fat-containing nodules) 2 - Benign Appearance or Behavior (nodules with very low likelihood of becoming a clinically active cancer due to size or lack of growth) 3 - Probably Benign (probably benign findings-short term follow up suggested; includes nodules with a low likelihood of becoming a clinically active cancer) 4A,4B,4X - Suspicious (category 3 or 4 nodules with findings for which additional diagnostic testing and/or tissue sampling is recommended) S - Other (clinically significant or potentially clinically significant findings (non-lung cancer) C - Prior Lung Cancer (modifier for patients with a prior diagnosis of lung cancer who return to screening) Electronically signed by: Sam Schneider M.D. Narrative 10/18/2024 8:32 AM CDT EXAMINATION: Lung cancer screening CT of the Chest without intravenous contrast HISTORY: Lung Cancer Screening TECHNIQUE: Low radiation dose chest protocol. No intravenous contrast. Reconstructed slice width 1.[address] Dose Index 0.95 mGy. Dose-length product 36.7 mGy-cm. COMPARISON: 10/16/2023 FINDINGS: Lung nodules or findings of lung cancer: 2 mm, left apex, scanner position 79.1, stable. Smoking related lung disease: none Other findings: None Procedure Note Sam Schneider MD - 10/18/2024 EXAMINATION: Lung cancer screening CT of the Chest without intravenous contrast HISTORY: Lung Cancer Screening TECHNIQUE: Low radiation dose chest protocol. No intravenous contrast. Reconstructed slice width 1.[address] Dose Index 0.95 mGy. Dose-length product 36.7 mGy-cm. COMPARISON: 10/16/2023 FINDINGS: Lung nodules or findings of lung cancer: 2 mm, left apex, scanner position 79.1, stable. Smoking related lung disease: none Other findings: None IMPRESSION: 1. LungRADS Category 2 (benign) . Recommend Low dose Screening CT of chest in 12 months. LungRADS Categories: 1 - Negative (no nodules, or only benign calcified or fat-containing nodules) 2 - Benign Appearance or Behavior (nodules with very low likelihood of becoming a clinically active cancer due to size or lack of growth) 3 - Probably Benign (probably benign findings-short term follow up suggested; includes nodules with a low likelihood of becoming a clinically active cancer) 4A,4B,4X - Suspicious (category 3 or 4 nodules with findings for which additional diagnostic testing and/or tissue sampling is recommended) S - Other (clinically significant or potentially clinically significant findings (non-lung cancer) C - Prior Lung Cancer (modifier for patients with a prior diagnosis of lung cancer who return to screening) Electronically signed by: Sam Schneider M.D. Bishnu Stacy MD IMG CT PROCEDURES Final Resul t * Urinalysis reflex to microscopic and culture Urine (08/18/2024 12:37 PM CDT) Color, ur Straw Yellow Clarity, ur Clear Clear [facility] Specific gravity, ur 1.008 1.003 - 1.030 [facility] pH, urine 6.[address] [facility] Comment: Interpretive Data U rine pH is affected by diet, medications, systemic acid-base disturbances, and renal tubular function. pH may affect urinary stone formation. For example, urine pH below 6.0 may help reduce the tendency for calcium phosphate stones and pH greater than 6.0 may reduce the tendency for uric acid stone formation. Source: [facility] [employer] Current Interpretive Data was last revised on 2017 Protein, ur ql Negative Negative [facility] Glucose, ur ql Negative Negative [facility] Ketones, ur Negative Negative [facility] Bilirubin, ur Negative Negative [facility] Blood, ur Negative Negative [facility] Urobilinogen, ur <2.0 <2.0 mg/dL [facility] Nitrite, ur Negative Negative [facility] Leukocyte esterase, ur Negative Negative [facility] UA reflex comment Reflex conditions for microscopic UA and culture not met. [facility] Urine 08/18/2024 12:3 7 PM CDT 08/18/2024 2:12 PM CDT Bishnu Stacy MD LAB MICROBIOLOGY - GENERAL OR DERABLES Final Result [facility] Department [place] [address] * Hepatitis C antibody Blood (08/18/2024 9:55 AM CDT) A-HCV II 0.07 Negative <0.90 [facility] Comment: <=0.9 negative 0.9-<1.0 borderline >= 1 positive Blood 08/18/2024 9:55 AM CDT 08/18/2024 10:06 AM CDT us Bishnu Stacy MD LAB MICROBIOLOGY - GENERAL OR DERABLES Final Result [facility] [address] [phone] * CBC with auto differential (08/18/2024 9:54 AM CDT) WBC 7.1 3.5 - 10.0 K/uL [facility] RBC 4.75 3.50 - 5.50 M/uL [facility] Hemoglobin 13.5 11.5 - 16.5 g/dL [facility] Hematocrit 39.9 35.0 - 55.0 % [facility] MCV 84.0 75.0 - 100.0 fL [facility] MCH 28.50 25.00 - 35.00 pg [facility] MCHC 33.90 31.00 - 38.00 g/dL [facility] RDW 13.3 11.0 - 16.0 % [facility] Platelets 302 140 - 400 K/uL [facility] MPV 9.2 8.0 - 11.0 fL [facility] Granulocyte, Absolute 4.2 1.2 - 8.0 K/uL [facility] Lymphocyte, Absolute 2.4 0.5 - 5.0 K/uL [facility] Monocyte, Absolute 0.5 0.1 - 1.5 K/uL [facility] Granulocyte, Percentage 59.4 35.0 - 80.0 % [facility] Lymphocyte, Percentage 33.8 15.0 - 50.0 % [facility] Monocyte, Percentage 6.8 2.0 - 15.0 % [facility] Blood 08/18/2024 9:54 AM CDT 08/18/2024 10:06 AM CDT us Bishnu Stacy MD LAB BLOOD ORDERABLES Final Re sult [facility] [address] [facility] [address] [place] [address] * TSH (08/18/2024 9:54 AM CDT) TSH 0.70 0.27 - 4.20 uIU/mL [facility] Blood 08/18/2024 9:54 AM CDT 08/18/2024 10:06 AM CDT Bishnu Stacy MD LAB BLOOD ORDERABLES Final Re sult Performing Organization Address [facility] Co de Phone Number KRISS [facility] [address] [facility] [address] * (ABNORMAL) Comprehensive metabolic panel (08/18/2024 9:54 AM CDT) Glucose 89 74 - 200 mg/dL [facility] BUN 20 18 - 23 mg/dL [facility] Creatinine 0.8 0.7 - 1.3 mg/dL [facility] BUN/Creat Ratio 25 Ratio [facility] Bilirubin, Total 0.3 0.0 - 1.2 mg/dL [facility] AST (SGOT) 18 0 - 32 U/L [facility] ALT (SGPT) 7(L) 10 - 35 U/L [facility] Alkaline phosphatase 69 35 - 104 U/L [facility] Calcium 9.9 8.8 - 10.2 mg/dL [facility] Sodium 141 135 - 145 mEq/L [facility] Potassium 4.2 3.5 - 5.1 mEq/L [facility] Chloride 104 98 - 107 mEq/L [facility] CO2 24.1 22.0 - 32.0 mEq/L [facility] Anion Gap 13(H) 3 - 12 mEq/L [facility] Total Protein 6.7 6.0 - 8.1 g/dL [facility] Albumin 4.7 3.5 - 5.2 g/dL [facility] Globulin 2.0 g/dL [facility] Albumin/Globulin 2.3 Ratio [facility] eGFR 85.84 [facility] Blood 08/18/2024 9:54 AM CDT 08/18/2024 10:06 AM CDT us Bishnu Stacy MD LAB BLOOD ORDERABLES Final Re sult [facility] [address] [phone] * POCT glucose (08/18/2024 9:03 AM CDT) Glucose Blood, POC 86 Normal Fasting 70 - 100, Random <200 mg/dL Blood 08/18/2024 9:03 AM CDT us Bishnu Stacy MD POINT OF CARE TEST ORDERABLES Final Result * POCT lipid panel (08/18/2024 9:03 AM CDT) Cholesterol, POC 196 <200 MG/DL HDL, POC 57 >=40 mg/dL Triglycerides, POC 134 <=149 mg/dL LDL Cholesterol POC 113 <=129 mg/dL Non-HDL Cholesterol, POC 140 NONE mg/dL Cholesterol Total, POC 196 30 - 199 mg/dL Capillary blood 08/18/2024 9 :03 AM CDT us Bishnu Stacy MD POINT OF CARE TEST ORDERABLES Final Result * Screening Mammogram Bilateral W Manohar (08/18/2024 7:20 AM CDT) Anatomical Region Laterality Modality Breast Bilateral Mammography Impressions 08/18/2024 2:30 PM CDT Bilateral No evidence of malignancy in either breast. OVERALL BI-RADS FINAL ASSESSMENT: 1 - Negative RECOMMENDATION: Recommend bilateral annual screening mammography. Narrative 08/18/2024 2:30 PM CDT EXAMINATION: Screening Mammogram Bilateral W Manohar: 08/18/2024 COMPARISON: Relevent prior studies available at the time of interpretation were reviewed, including the most recent mammogram on: 08/14/2023. TECHNIQUE: Mammography was performed with 2D and digital breast tomosynthesis (DBT) images. CAD was utilized. BREAST PARENCHYMAL COMPOSITION: There are scattered areas of fibroglandular density. FINDINGS: Bilateral There is no suspicious mass, calcification, or architectural distortion in either breast. us Self Screening Mammogram IMG MAMMO PROCEDURES Fi nal Result from Last 3 Months Insurance [facility] Advance Directives For more information, please contact: [phone] Documents on File Type Date Recorded Patient Aerial Gunner Expl anation Advance Directives and Livin g Will 12/11/2022 1:04 PM * Full Code (Latest Code Status on File) Date Activated Date Inactivated Comments 11/17/2023 5:43 PM 11/18/2023 6:55 PM * Full Code Date Activated Date Inactivated Comments 12/11/2022 6:21 PM 12/12/2022 9:34 PM * Full Code Date Activated Date Inactivated Comments 04/10/2022 3:07 PM 04/11/2022 7:21 PM Care Teams Manager Wind Relationship Specialty Start Date End Date Bishnu Stacy MD PCP - General Internal Medicine 06/11/20
--- OUTSIDE RECORDS SUMMARY | 2024-10-26 01:44 | XMS_ITS | Encounter Summary ---
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
--- OUTSIDE RECORDS SUMMARY | 2024-10-26 01:44 | XMS_ITS | Clinical Summary ---
Author Organization [facility] Address [address] [place] [id number] Care Team Providers Care Machinist Set Up Name Role Phone Unavailable Primary Care Provider Unavailabl e Social History Tobacco Use Types Packs/Day Years Used Date Smoking Tobacco: Never Assessed Comments Unknown Sex and Gender Information Value Date Recorded Sex Assigned at Not on file Legal Sex Female 10:43 PM CDT Gender Identity Not on file Sexual Orientation Not on file Plan of Treatment Health Maintenance Due Date Last Done Comments Cervical Cancer Screening Pa p Smear (Age 30 to 64) Every 3 Years 1965 Colorectal Cancer Screening Colonoscopy (10 Years) 1965 Annual Physical 07/15/1966 Hepatitis C 07/15/1981 DTaP, Tdap and Td Vaccines ( 1 - Tdap) 07/15/1982 Cervical Cancer Screening Pa p with HPV Testing (Age 30 to 64) Every 5 Years 07/15/1993 Cervical Cancer Screening with HPV 07/15/1993 Mammogram Screening 2003 Pneumococcal Vaccine: 50+ Ye ars (1 of 1 - PCV) 07/15/2013 Zoster Vaccines (1 of 2) 07/15/2013 COVID-19 Vaccine ( - 2023-2 5 season) 2023 RSV Immunization or 60+ Years (1 - 1-dose 75+ series) 07/15/2038 Meningococcal B Vaccine Aged Out No l onger eligible based on patient's age to complete this topic Meningococcal Vaccine Aged Out No cruz chen eligible based on patient's age to complete this topic RSV Immunizations Under 20 Months Aged Out No longer eligible based on patient's age to complete this topic
[2024-10-26 11:54] VITALS: BP 158/79; PULSE 68; RESP 20; TEMP 36.2; O2SAT 100
[2024-10-26] MEDS: LACTATED RINGERS 1,000 ML 150 ML IV CONT (12:02)
--- NOTE | 2024-10-26 12:31 | PM.HPGS ---
History of Present Illness History of Present Illness Consent: Risks, benefits, and alternatives have been discussed and questions answered. Patient agrees to proceed with procedure. Chief complaint: Dysphagia, unspecified Narrative: Wilda Ceron is a 59 year old female here for egd, h/o dysphagia Review of Systems Review of Systems: All systems reviewed & are unremarkable except as noted in HPI and below PMFSH Past Medical History Medical History (Updated 10/26/24 @ 12:35 by Jeff Vu MD) Dysphagia Lumbar scoliosis History of syncope Hallux valgus with bunions of right foot Metatarsus adductus of right foot Arthritis of foot, right, degenerative Arthritis Anxiety Depression GERD (gastroesophageal reflux disease) Hypertension High cholesterol Encephalitis Vision abnormalities Surgical History Surgical History History of surgery Right femur nail 1980 History of left hip replacement 2015, Vincent Bowden Family History Family History Other Arthritis Hypertension Social History Social History Smoking packs per day: 1 Smoking cigarettes per day: 20.0 Years smoked: 33 Smoking pack-years: 33.00 Smoking status: Former smoker Tobacco type: cigarettes Alcohol intake: current Alcohol use details: Occasional Substance use: never Substance use type: does not use Living arrangements: with family Spiritual care concerns: No Meds Home Medications and Allergies Home Medications ?Medication ?Instructions ?Recorded ?Confirmed ?Type acetaminophen 650 mg 1,300 mg PO Q12H PRN Pain 04/15/19 10/14/24 History tablet,extended release (Tylenol Arthritis Pain) aspirin 81 mg tablet,delayed 81 mg PO DAILY 04/15/19 10/26/24 History release lisinopril 20 mg tablet 20 mg PO DAILY 04/15/19 10/26/24 History multivitamin 1 cap PO DAILY 04/15/19 10/14/24 History sertraline 150 mg PO DAILY 04/15/19 10/26/24 History simvastatin 40 mg tablet 40 mg PO DAILY 04/15/19 10/26/24 History Allergies Allergy/AdvReac Type Severity Reaction Status Date / Time No Known Allergies Allergy Unknown Verified 10/26/24 11:52 Vital Signs Vital Signs - 24 hr 10/26/24 11:54 Temperature 97.2 F L Pulse Rate 68 Respiratory Rate 20 Blood Pressure 158/79 H Pulse Oximetry 100 Oxygen Delivery Room Air Exam Const: General: comfortable and no acute distress HENMT: Face/Nose/Sinus: Normal nares present Eyes: General: appearance normal, both eyes and all related structures Neck: Neck: no JVD Resp: Auscultation: clear to auscultation bilaterally Cardio: Rate: regular rate Rhythm: regular rhythm GI: Inspection: non-distended GI Palp: Yes Soft to palpation Skin: General skin exam: normal color Neuro: Speech: normal speech Extrem: General: normal to inspection Psych: Mental Status: mental status grossly normal Assessment and Plan Assessment and plan (1) Dysphagia: Code(s): R13.10 - Dysphagia, unspecified Status: Acute Assessment and Plan: egd
--- NOTE | 2024-10-26 12:34 | WPDANESEPPF ---
Anes - Initial Pre Proc Eval Procedure: Operation Date: 10/26/24 13:00 Proposed Procedures p Esophagogastroduodenoscopy - Jeff Vu MD Date/Time: 10/26/24 12:34 Surgeon: Jeff Vu MD Pre Op Diagnosis: Dysphagia, unspecified Patient Data Age: 59 Gender: F Height: 1.73 m Weight: 87.3 kg Last Vital Signs Temp 36.2 C L 10/26/24 11:54 Pulse 68 10/26/24 11:54 Resp 20 10/26/24 11:54 BP 158/79 H 10/26/24 11:54 Pulse Ox 100 10/26/24 11:54 O2 Del Method Room Air 10/26/24 11:54 Allergies Allergy/AdvReac Type Severity Reaction Status Date / Time No Known Allergies Allergy Unknown Verified 10/26/24 11:52 Home Medications ?Medication ?Instructions ?Recorded ?Confirmed ?Type acetaminophen 650 mg 1,300 mg PO Q12H PRN Pain 04/15/19 10/14/24 History tablet,extended release (Tylenol Arthritis Pain) aspirin 81 mg tablet,delayed 81 mg PO DAILY 04/15/19 10/26/24 History release lisinopril 20 mg tablet 20 mg PO DAILY 04/15/19 10/26/24 History multivitamin 1 cap PO DAILY 04/15/19 10/14/24 History sertraline 150 mg PO DAILY 04/15/19 10/26/24 History simvastatin 40 mg tablet 40 mg PO DAILY 04/15/19 10/26/24 History Patient hx anesthesia problems: none Family hx anesthesia problems: none Results Review: All pre-operative results and documents have been reviewed as part of the pre-operative evaluation. REPLACED BY [facility] Past Medical History Medical History Anxiety Arthritis Arthritis of foot, right, degenerative Depression Encephalitis GERD (gastroesophageal reflux disease) Hallux valgus with bunions of right foot High cholesterol History of syncope Hypertension Lumbar scoliosis Metatarsus adductus of right foot Vision abnormalities Surgical History Surgical History History of left hip replacement 2015, Vincent Bowden History of surgery Right femur nail 1979 Family History Family History Other Arthritis Hypertension Social History Social History Smoking packs per day: 1 Smoking cigarettes per day: 20.0 Years smoked: 33 Smoking pack-years: 33.00 Smoking status: Former smoker Tobacco type: cigarettes Alcohol intake: current Alcohol use details: Occasional Substance use: never Substance use type: does not use Living arrangements: with family Spiritual care concerns: No Anes - Eval Final PreProcedure Day of Procedure 10/26/24 12:34 Patient weight: overweight Heart: regular rate and rhythm Lungs: clear to auscultation Airway: Mallampati scale class II Neurological: alert and oriented Last oral intake: >/= 8 hours ASA classification: II Emergent: no Anesthetic plan: proceed Anesthesia type and monitoring: general GIVS and standard monitoring Results Review: All pre-operative results and documents have been reviewed as part of the pre-operative evaluation. Informed Consent: The patient's anesthetic plan and its attendant risks and benefits were discussed with the patient/family/POA. Questions were solicited and answers provided to the satisfaction of the patient/family/POA.
--- NOTE | 2024-10-26 12:49 | S_PTH ---
PATIENT: Wilda Ceron LOC: [facility] Arndt#:[id number] AGE/SX: 59/F ROOM: RE10/26/[address]: Jeff Vu MD : 1965 BED: DIS: 10/26/2024 SPEC #: [id number] RECD: 10/26/24 13:16 STATUS: OLY RE #: [id number] AYDEN: 10/26/24 12:[address]: Jeff Vu DEPT: [facility] Surgical RECD BY: Radha Finch ENTERED: 10/26/24 13:16 SP TYPE: Surgical OTHR DR: Bishnu Stacy, Tissues: A - Gastric Biopsy Procedures: Hematoxylin and Eosin Stain Gross and Microscopic Level 4
[2024-10-26 12:50] VITALS: BP 111/48; PULSE 71; RESP 23; O2SAT 97
[2024-10-26 13:00] VITALS: BP 121/63; PULSE 71; RESP 20; O2SAT 98
[2024-10-26 13:10] VITALS: BP 118/71; PULSE 70; RESP 20; O2SAT 98
== END 2024-10-26 13:23 | disposition home or self-care (01) ==
PROVIDERS: PCP Internal Medicine; Referring Provider Internal Medicine; Visit Provider Internal Medicine Gastroenterology
PROC: 0DJ08ZZ Inspection of Upper Intestinal Tract, Via Natural or Artificial Opening Endoscopic (ICD-10-PCS; CPT 43239; principal; 2024-10-26 13:00)
DX: K22.2 Esophageal obstruction (principal); K44.9 Diaphragmatic hernia without obstruction or gangrene
CPT/HCPCS: 43239; 43249; 88305; C1726; J7120